=== PATIENT | female | born 1960 | race Two or more races ===

== ENCOUNTER 2016-10-17 07:48 | Emergency (ER) | payer MEDICAID, OTHER ==
[~2016-10-17] VITALS: Ht 152.4 cm; Wt 88.5 kg
[~2016-10-17 07:48] MED LIST: IRON325 M1 PO
[2016-10-17 08:22] VITALS: BP 133/76
[2016-10-17] MEDS ORDERED: LISINOPRIL5 MG ORAL (08:25)
[2016-10-17] MEDS ORDERED: METFORMIN HCL1000 M1 ORAL (08:25)
[2016-10-17] MEDS ORDERED: TRAMADOL HCL50 MG ORAL (08:25)
[2016-10-17] MEDS ORDERED: Norco 5mg/325mg tab ORAL ONE ×2 (08:45→10:00)
[2016-10-17] MEDS ORDERED: Ketorolac 30mg Inj IM ONE (08:45)
--- NOTE | 2016-10-17 09:02 | Emergency Room Report ---
History of Present Illness General Chief Complaint: Lower Extremity Injury Source: Patient Present Illness HPI 56-year-old female presents to ED complaining of right leg and back pain. States patient has had episodes of back pain for the last one year after a slip and fall a work. Patient states pain got worse yesterday. Denies any recent trauma. States her home medications are not helping. He states he tramadol at home. Patient notes pain is 10 out of 10, throbbing, radiating down the right leg. No aggravating or relieving factors. Denies any bowel or bladder incontinence. Denies any other associated symptoms Allergies: Coded Allergies: No Known Allergies (Unverified , 09/08/12) Patient History Past Medical History: DM, HTN Past Surgical History: none Pertinent Family History: none Social History: Denies: alcohol use, drug use, smoking Last Menstrual Period: na Now: No Immunizations: UTD Reviewed Nursing Documentation: PMH: Agreed, PSxH: Agreed Nursing Documentation-PMH Past Medical History: No History, Except For Hx Hypertension: Yes Hx Diabetes: Yes Review of Systems All Other Systems: negative except mentioned in HPI Physical Exam Vital Signs Date Time Temp Pulse Resp B/P Pulse Ox O2 Delivery O2 Flow Rate FiO2 10/17/16 08:15 97.3 90 18 150/103 99 Room Air Sp02 EP Interpretation: reviewed, normal General Appearance: no apparent distress, alert, GCS 15, non-toxic Head: normocephalic Eyes: bilateral eye PERRL, bilateral eye normal inspection ENT: normal ENT inspection Neck: normal inspection Respiratory: normal inspection Cardiovascular #1: normal inspection Gastrointestinal: normal inspection Rectal: deferred Genitourinary: no CVA tenderness, vertebral tenderness Musculoskeletal: normal range of motion, other - paravertebral tenderness Neurologic: alert, oriented x3, responsive, motor strength/tone normal, speech normal Psychiatric: normal inspection Skin: normal inspection Lymphatic: normal inspection Medical Decision Making Diagnostic Impression: Primary Impression: Back pain Qualified Codes: M54.41 - Lumbago with sciatica, right side; G89.29 - Other chronic pain ER Course Hospital Course 56-year-old female presents ED complaining of lower back pain. h/o chronic back pain Differential diagnoses include: pyelonephritis, kidney stone, muscle strain, Lspine fracture Clinical course Patient placed on stretcher. After initial history and physical I ordered toradol and [place] for pain. Upon reassessment patient states pain has improved. Upon review of EMR, patient does not have any visits to ED requesting pain medications. Diagnosis - back pain Stable and discharged to home with prescription for Motrin, [place]. Followup with PMD. Return to ED if symptoms recur or worsen Last Vital Signs Date Time Temp Pulse Resp B/P Pulse Ox O2 Delivery O2 Flow Rate FiO2 10/17/16 08:22 86 16 133/76 99 Room Air 10/17/16 08:15 97.3 Status: improved Disposition: HOME, SELF-CARE Condition: Stable Scripts Hydrocodone Bit/Acetaminophen 5-325* (NORCO 5-325*) 1 Each Tablet 1 TAB ORAL Q6H Y for For Pain, #10 TAB 0 Refills Prov: JULISA HAJI M.D. 10/17/16 Ibuprofen* (MOTRIN*) 600 Mg Tablet 600 MG ORAL Q8H Y for For Pain, #30 TAB 0 Refills Prov: JULISA HAJI M.D. 10/17/16 Referrals: NOT CHOSEN BETTY/,REFERRING (PCP) JULISA HAJI M.D. Oct 17, 2016 09:01
[2016-10-17] MEDS ORDERED: NORCO 5-325 TA1 EACH ORAL (09:24)
[2016-10-17] MEDS ORDERED: IBUPROFEN600 MG ORAL (09:24)
[2016-10-17 09:55] VITALS: BP 125/80
== END 2016-10-17 10:05 | disposition home or self-care (01) ==
LOC: EMR 08:44
DX: M54.41 Lumbago with sciatica, right side (principal); G89.29 Other chronic pain; E11.9 Type 2 diabetes mellitus without complications; I10 Essential (primary) hypertension
CPT/HCPCS: 96372; 99284; J1885

== ENCOUNTER 2020-04-11 06:01 | Emergency (ER) | payer MEDICAID, OTHER ==
[~2020-04-11] VITALS: Ht 167.6 cm; Wt 68.0 kg
[~2020-04-11 06:01] MED LIST changes: +IBUPROFEN600 MG ORAL; +LISINOPRIL5 MG ORAL; +METFORMIN HCL1000 M1 ORAL; +NORCO 5-325 TA1 EACH ORAL; +TRAMADOL HCL50 MG ORAL
[2020-04-11] MEDS ORDERED: GABAPENTIN100 MG ORAL (06:10)
[2020-04-11] MEDS ORDERED: SIMVASTATIN5 MG ORAL (06:10)
[2020-04-11] MEDS ORDERED: GLIPIZIDE5 MG ORAL (06:10)
[2020-04-11] MEDS ORDERED: LOSARTAN POTASS25 MG ORAL (06:10)
--- NOTE | 2020-04-11 06:10 | NUR ---
ED Nurse Note: pt presents to the ED c/o HTN and dizziness onset this AM. pt reports that she is compliant with all her medications but woke up with high BP and dizziness this AM. pt is also c/o nausea without vomiting. states that last time she felt this way she was hypyerglycemic, accucheck is 186. pt denies any CP at this time or pain anywhere else, denies cough or SOB.
[2020-04-11] MEDS ORDERED: Metoclopramide 10mg/2ml Inj IVP ONE (06:15)
[2020-04-11] MEDS ORDERED: DiphenhydrAMINE 50mg/ml Inj IVP ONE (06:15)
--- NOTE | 2020-04-11 06:24 | Emergency Room Report ---
History of Present Illness General Chief Complaint: Hypertension Source: Patient Present Illness HPI The patient presents with a complaint of dizziness. She woke up with this along with nausea and vomiting. She denies any diarrhea. There have been no coffee grounds or melena. She denies pain at this time. There is no headache or tinnitus. She has had no fevers or chills or sore throat. She had this problem a year ago and says at that time it was determined that her blood sugar was high. This was in [place] where she was evaluated. She denies dysuria. She is concerned because her blood pressure was elevated also. When she felt this way she became anxious. The dizziness was not positional. The patient has not been working for 5 months and has not been exposed to COVID- 19 sources that she knows of. No chest pain, palpitations, abdominal pain, shortness of breath, joint pain, rashes, depression, headache. 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 Patient History Past Medical History: see triage record Social History: Denies: smoking - second hand, alcohol use, drug use Social History Narrative From [place], lives with boyfriend and unemployed Now: No Reviewed Nursing Documentation: PMH: Agreed; PSxH: Agreed Nursing Documentation-PMH Past Medical History: No History, Except For Hx Hypertension: Yes Hx Diabetes: Yes Review of Systems All Other Systems: negative except mentioned in HPI Physical Exam Vital Signs Date Time Temp Pulse Resp B/P (MAP) Pulse Ox O2 Delivery O2 Flow Rate FiO2 04/11/20 06:04 97.9 70 16 171/81 (111) 97 Room Air Sp02 EP Interpretation: reviewed, normal General Appearance: well appearing, no apparent distress, GCS 15 Head: normocephalic Eyes: bilateral eye normal inspection, bilateral eye PERRL, bilateral eye EOMI - No significant nystagmus ENT: moist mucus membranes Neck: supple Respiratory: lungs clear, normal breath sounds Cardiovascular #1: regular rate, rhythm Cardiovascular #2: 2+ radial (R) Gastrointestinal: normal inspection, normal bowel sounds, non tender, no mass, non-distended, overweight Musculoskeletal: back normal, normal range of motion, gait/station normal Neurologic: alert, motor strength/tone normal, 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 Differential includes acute myocardial infarction, hyperglycemia, labyrinthitis, vestibular neuritis amongst others. Patient evaluated EKG chest x-ray and labs. Patient treated with gentle IV hydration and Reglan with Benadryl. Based on neurologic exam and lack of red flag symptoms CT of the head is not indicated at this time. Doubt COVID-19 based on symptomatology and lack of exposure. EKG normal sinus rhythm normal EKG. Labs unremarkable except for minimally elevated glucose. Improved with treatment. No medical emergency. Discussed findings and treatment plan with patient. Discussed the need for outpatient follow-up. Patient stable for outpatient observation and treatment. Laboratory Tests Test 04/11/20 06:13 04/11/20 06:30 Prothrombin Time 11.2 SEC (9.30-11.50) Prothrombin Time INR 1.0 (0.9-1.1) Activated Partial Thromboplast Time 26 SEC (23-33) White Blood Count 7.9 K/UL (4.8-10.8) Red Blood Count 4.81 M/UL (4.20-5.40) Hemoglobin 13.1 G/DL (12.0-16.0) Hematocrit 40.1 % (37.0-47.0) Mean Corpuscular Volume 83 FL (80-99) Mean Corpuscular Hemoglobin 27.1 PG (27.0-31.0) Mean Corpuscular Hemoglobin Concent 32.6 G/DL (32.0-36.0) Red Cell Distribution Width 13.6 % (11.6-14.8) Platelet Count 194 K/UL (150-450) Mean Platelet Volume 7.6 FL (6.5-10.1) Neutrophils (%) (Auto) 56.1 % (45.0-75.0) Lymphocytes (%) (Auto) 34.9 % (20.0-45.0) Monocytes (%) (Auto) 6.7 % (1.0-10.0) Eosinophils (%) (Auto) 1.4 % (0.0-3.0) Basophils (%) (Auto) 0.8 % (0.0-2.0) Urine Color Pale yellow Urine Appearance Clear Urine pH 5 (4.5-8.0) Urine Specific [place] 1.020 (1.005-1.035) Urine Protein Negative (NEGATIVE) Urine Glucose (UA) Negative (NEGATIVE) Urine Ketones Negative (NEGATIVE) Urine Blood Negative (NEGATIVE) Urine Nitrite Negative (NEGATIVE) Urine Bilirubin Negative (NEGATIVE) Urine Urobilinogen Normal MG/DL (0.0-1.0) Urine Leukocyte Esterase 1+ (NEGATIVE) H Urine RBC 2-4 /HPF (0 - 2) H Urine WBC 2-4 /HPF (0 - 2) Urine Squamous Epithelial Cells Many /LPF (NONE/OCC) H Urine Bacteria Few /HPF (NONE) Sodium Level 141 MMOL/L (136-145) Potassium Level 4.3 MMOL/L (3.5-5.1) Chloride Level 104 MMOL/L (98-107) Carbon Dioxide Level 28 MMOL/L (21-32) Anion Gap 9 mmol/L (5-15) Blood Urea Nitrogen 13 mg/dL (7-18) Creatinine 1.0 MG/DL (0.55-1.30) Estimated Glomerular Filtration Rate 56.8 mL/min (>60) Glucose Level 179 MG/DL (74-106) H Calcium Level 9.4 MG/DL (8.5-10.1) Ferritin 78 NG/ML (8-388) Total Bilirubin 0.2 MG/DL (0.2-1.0) Aspartate Amino Transferase (AST) 42 U/L (15-37) H Alanine Aminotransferase (ALT) 46 U/L (12-78) Alkaline Phosphatase 136 U/L (46-116) H Lactate Dehydrogenase 174 U/L (81-234) Total Creatine Kinase 116 U/L (26-308) Troponin I 0.000 ng/mL (0.000-0.056) C-Reactive Protein, Quantitative 1.7 mg/dL (0.00-0.90) H Total Protein 8.5 G/DL (6.4-8.2) H Albumin 3.9 G/DL (3.4-5.0) Globulin 4.6 g/dL Albumin/Globulin Ratio 0.8 (1.0-2.7) L Lipase 162 U/L (73-393) EKG Diagnostic Results Rate: normal Rhythm: NSR ST Segments: no acute changes Rhythm Strip Diag. Results EP Interpretation: yes Rhythm: NSR, no PVC's, no ectopy Chest X-Ray Diagnostic Results Chest X-Ray Diagnostic Results : Chest X-Ray Ordered: Yes # of Views/Limited/Complete: 1 View Indication: Chest Pain EP Interpretation: Yes Interpretation: no consolidation, no effusion, no pneumothorax Impression: No acute disease Electronically Signed by: Electronically signed by Braden Amos MD Last Vital Signs Date Time Temp Pulse Resp B/P (MAP) Pulse Ox O2 Delivery O2 Flow Rate FiO2 04/11/20 08:47 97.9 82 18 151/82 99 Room Air Status: improved Disposition: HOME, SELF-CARE Condition: Improved Scripts Meclizine Hcl* (VERTICALM*) 25 Mg Tablet 25 MG ORAL THREE TIMES A DAY PRN for for dizziness, #8 TAB Prov: Braden Amos MD 04/11/20 Metoclopramide Hcl* (REGLAN*) 10 Mg Tablet 10 MG ORAL THREE TIMES A DAY PRN for Nausea & Vomiting, #8 TAB Prov: Braden Amos MD 04/11/20 Braden Amos MD Apr 11, 2020 06:24
[2020-04-11 06:34] VITALS: BP 171/81
--- NOTE | 2020-04-11 07:03 | NUR ---
HAND-OFF: Report given to JAYLIN Atwood.
--- NOTE | 2020-04-11 07:08 | Diagnostic Imaging Report ---
EXAM: XR Chest, 1 View CLINICAL HISTORY: ABD PAIN TECHNIQUE: Frontal view of the chest. COMPARISON: No relevant prior studies available. FINDINGS: Lungs: No focal infiltrate. Mild, chronically increased interstitial markings. Low lung volumes secondary to poor inspiration which accentuates bronchovascular markings. Pleural space: Unremarkable. No pneumothorax. Heart: Unremarkable. No cardiomegaly. Mediastinum: Unremarkable. Bones/joints: Unremarkable. IMPRESSION: No focal infiltrate. Low lung volumes secondary to poor inspiration which accentuates bronchovascular markings.
[2020-04-11 07:23] LABS: BASOPHILS % (AUTO) 0.8 % (0.0-2.0); EOSINOPHILS % (AUTO) 1.4 % (0.0-3.0); HEMATOCRIT 40.1 % (37.0-47.0); HEMOGLOBIN 13.1 G/DL (12.0-16.0); LYMPHOCYTES % (AUTO) 34.9 % (20.0-45.0); MEAN CORPUSCULAR VOLUME 83 FL (80-99); MONOCYTES % (AUTO) 6.7 % (1.0-10.0); NEUTROPHILS % (AUTO) 56.1 % (45.0-75.0); PLATELET COUNT 194 K/UL (150-450); RED BLOOD COUNT 4.81 M/UL (4.20-5.40); RED CELL DISTRIBUTION WIDTH 13.6 % (11.6-14.8); WHITE BLOOD COUNT 7.9 K/UL (4.8-10.8)
[2020-04-11 07:29] LABS: APPEARANCE,URINE CLEAR; BILIRUBIN, URINE NEGATIVE (NEGATIVE); COLOR,URINE PALE YELLOW; GLUCOSE, URINE (UA) NEGATIVE (NEGATIVE); KETONES,URINE NEGATIVE (NEGATIVE); LEUKOCYTE ESTERASE ,URINE 1+ (NEGATIVE); NITRITE,URINE NEGATIVE (NEGATIVE); PH,URINE 5 (4.5-8.0); PROTEIN,URINE NEGATIVE (NEGATIVE); UROBILINOGEN,URINE NORMAL MG/DL (0.0-1.0)
[2020-04-11 07:31] LABS: ANION GAP 9 mmol/L (5-15); BLOOD UREA NITROGEN 13 mg/dL (7-18); CALCIUM 9.4 MG/DL (8.5-10.1); CARBON DIOXIDE 28 MMOL/L (21-32); CHLORIDE 104 MMOL/L (98-107); POTASSIUM 4.3 MMOL/L (3.5-5.1); SODIUM 141 MMOL/L (136-145)
[2020-04-11 07:52] LABS: ALANINE AMINOTRANSFERASE 46 U/L (12-78); ALBUMIN 3.9 G/DL (3.4-5.0); ALBUMIN/GLOBULIN RATIO 0.8 (1.0-2.7); ALKALINE PHOSPHATASE 136 U/L (46-116); ASPARTATE AMINO TRANSFERASE 42 U/L (15-37); BILIRUBIN,TOTAL 0.2 MG/DL (0.2-1.0); CREATINE KINASE 116 U/L (26-308); FERRITIN 78 NG/ML (8-388); LACTATE DEHYDROGENASE 174 U/L (81-234)
[2020-04-11] MEDS ORDERED: REGLAN10 MG ORAL (08:36)
[2020-04-11] MEDS ORDERED: VERTICALM25 MG ORAL (08:36)
[2020-04-11 08:47] VITALS: BP 151/82
--- NOTE | 2020-04-11 08:47 | NUR ---
ER DISCHARGE NOTE: Patient is cleared to be discharged per ERMD, pt is aox4, on room air, with stable vital signs. pt was given dc and prescription instructions, pt was able to verbalize understanding, pt id band and iv site removed without complications. pt is able to ambulate with steady gait. pt took all belongings. Pt provided images. Pt provided f/u insdtructions and med information.
== END 2020-04-11 08:49 | disposition home or self-care (01) ==
LOC: EMR 06:26
DX: R42 Dizziness and giddiness (principal); R11.2 Nausea with vomiting, unspecified; E11.9 Type 2 diabetes mellitus without complications; I10 Essential (primary) hypertension; E66.3 Overweight; Z68.24 Body mass index [BMI] 24.0-24.9, adult
CPT/HCPCS: 36415; 71045; 80053; 81003; 82550; 82728; 83615; 83690; 84484; 85025; 85610; 85730; 86140; 93005; 96361; 96374; 96375; J1200; J2765; J7030; Z7502; 99284